=== PATIENT | female | born 1945 | race Hispanic/Latino ===

== ENCOUNTER 2023-06-15 20:10 | Emergency (ER) | payer MEDICARE ==
[~2023-06-15] VITALS: Ht 149.9 cm; Wt 72.6 kg
[2023-06-15 22:46] VITALS: BP 144/54; PULSE 52; RESP 16; TEMP 98.3
[2023-06-15 23:00] VITALS: O2SAT 97
== END 2023-06-15 23:20 | disposition home or self-care (01) ==
LOC: ER 20:17
DX: M79.605 Pain in left leg (principal); M79.89 Other specified soft tissue disorders; I10 Essential (primary) hypertension; E11.9 Type 2 diabetes mellitus without complications; E78.5 Hyperlipidemia, unspecified
CPT/HCPCS: 93971; 99283